=== PATIENT | female | born 1960 | race Caucasian/White ===

== ENCOUNTER 2016-08-20 19:13 | Inpatient (IN) | payer BC, OTHER ==
[~2016-08-20] VITALS: Ht 165.1 cm; Wt 56.7 kg
[2016-08-21] MEDS ORDERED: MAGNESIUM HYDROXIDE 30 ML LIQUID UDC PO PRN (17:15)
[2016-08-21] MEDS ORDERED: LORAZEPAM 2 MG/1 ML VIAL IM PRN (17:15)
[2016-08-21] MEDS ORDERED: LORAZEPAM 1 MG TABLET PO PRN (17:15)
[2016-08-21] MEDS ORDERED: diphenhydrAMINE 50 MG CAPSULE PO PRN (17:15)
[2016-08-21] MEDS ORDERED: ACETAMINOPHEN 325 MG TABLET PO PRN (17:15)
[2016-08-21] MEDS ORDERED: LOPERAMIDE HCL 2 MG CAPSULE PO PRN (17:15)
[2016-08-21] MEDS ORDERED: ONDANSETRON 4 MG/2 ML VIAL IM PRN (17:15)
[2016-08-21] MEDS ORDERED: MAG HYDROX/AL HYDROX/SIMETH 30 ML LIQUID UDC PO PRN (17:15)
[2016-08-21] MEDS ORDERED: MIRALAX 17 GM POWD.PACK PO PRN (17:15)
[2016-08-21 17:58] LABS: THYROID STIMULATING HORMONE 3.286 mIU/mL (0.358-3.740)
[2016-08-21] MEDS ORDERED: GABA600T2 PO (18:07)
[2016-08-21] MEDS ORDERED: GABA-534 PO (18:08)
[2016-08-21 18:09] LABS: ALBUMIN 3.6 g/dL (3.4-5.0); BILIRUBIN,TOTAL 0.2 mg/dL (0.2-1.0); CALCIUM 8.7 mg/dL (8.5-10.1); CREATININE 0.9 mg/dL (0.6-1.3); MAGNESIUM 1.8 mg/dL (1.8-2.4); POTASSIUM 4.4 mmol/L (3.5-5.1); TOTAL PROTEIN, SERUM 8.1 g/dL (6.4-8.2)
[2016-08-21] MEDS ORDERED: BUPR450T PO (18:10)
[2016-08-21] MEDS ORDERED: ZOLP10TA6 PO (18:12)
[2016-08-21] MEDS ORDERED: FLUO40CA49 PO (18:12)
[2016-08-21] MEDS ORDERED: FLUO-120 PO (18:13)
[2016-08-21] MEDS ORDERED: LOSA1TAB36 PO (18:14)
[2016-08-21 18:18] LABS: HIV-1 p24 ANTIGEN NON REACTIVE (NONREACTIVE); HIV-1/2 ANTIBODY NON REACTIVE (NONREACTIVE)
[2016-08-21 18:23] LABS: BASOPHILS # (AUTO) 0.1 K/uL (0.0-8.0); EOSINOPHILS % (AUTO) 0.4 % (0.0-7.0); HEMATOCRIT 42.3 % (37-47); HEMOGLOBIN 14.2 G/DL (12.0-16.0); LYMPHOCYTES # (AUTO) 1.9 K/uL (20.0-40.0); LYMPHOCYTES % (AUTO) 20.9 % (20.5-51.5); MEAN CORPUSCULAR HEMOGLOBIN 32.7 UUG (27.0-31.0); MEAN CORPUSCULAR HGB CONC 34 g/dL (32.0-37.0); MEAN CORPUSCULAR VOLUME 97.4 FL (81.0-99.0); MONOCYTES # (AUTO) 0.7 K/uL (2.0-10.0); MONOCYTES % (AUTO) 7.4 % (0.0-11.0); NEUTROPHILS # (AUTO) 6.3 K/uL (1.8-8.9); NEUTROPHILS % (AUTO) 70.3 % (38.5-71.5); PLATELET COUNT (AUTO) 370 K/UL (150-450); RED BLOOD CELL COUNT(AUTO) 4.34 MIL/UL (4.2-5.4); RED CELL DISTRIBUTION WIDTH 13.3 % (11.5-14.5)
[2016-08-21 18:47] VITALS: BP 129/86
[2016-08-21] MEDS ORDERED: THIAMINE HCL 200 MG/2 ML VIAL IM ONE (19:00)
[2016-08-21 20:00] VITALS: BP 145/95
[2016-08-21 20:54] LABS: *URINE HCG, QUAL NEGATIVE (NEGATIVE)
[2016-08-21 21:10] LABS: *AMPHETAMINE, URINE NEGATIVE (NEGATIVE); *BARBITURATE, URINE NEGATIVE (NEGATIVE); *CANNABINOID, URINE NEGATIVE (NEGATIVE); *COCCAINE, URINE NEGATIVE (NEGATIVE); *OPIATE, URINE NEGATIVE (NEGATIVE); *PHENCYCLIDINE SCREEN,URINE NEGATIVE (NEGATIVE)
[2016-08-21] MEDS: LORAZEPAM 1 MG TABLET PO PRN (21:23)
[2016-08-21] MEDS: ONDANSETRON ODT 4 MG TAB.RAPDIS SL PRN (21:23)
[2016-08-21] MEDS: IBUPROFEN 400 MG TABLET PO PRN (21:23)
[2016-08-22] VITALS (7 sets, daily range): BP systolic 102–173; BP diastolic 63–116
[2016-08-22] MEDS: LORAZEPAM 1 MG TABLET PO PRN (01:49)
[2016-08-22] MEDS: IBUPROFEN 400 MG TABLET PO PRN (01:49)
[2016-08-22] MEDS: CLONIDINE HCL 0.1 MG TABLET PO PRN ×2 (07:42→17:06)
[2016-08-22] MEDS: ONDANSETRON ODT 4 MG TAB.RAPDIS SL PRN (07:42)
[2016-08-22] MEDS: DICYCLOMINE HCL 20 MG TABLET PO PRN (07:42)
[2016-08-22] MEDS: FOLIC ACID 1 MG TABLET PO SCH (08:10)
[2016-08-22] MEDS: MULTIVITAMINS,THERAPEUTIC TABLET PO SCH (08:10)
[2016-08-22] MEDS: LORAZEPAM 1 MG TABLET PO SCH ×4 (08:10→21:24)
[2016-08-22] MEDS: THIAMINE HCL 100 MG TABLET PO SCH (08:10)
[2016-08-22] MEDS ORDERED: TUBERCULIN,PURIF.PROT.DERIV. 5 TU/0.1 ML TEST ID ONE (09:00)
[2016-08-22] MEDS: HYDROCHLOROTHIAZIDE 12.5 MG CAPSULE PO SCH (11:52)
[2016-08-22] MEDS: LOSARTAN POTASSIUM 50 MG TABLET PO SCH (11:52)
[2016-08-22 12:06] LABS: HCV AB 0.1 s/co ratio (0.0-0.9); HEPATITIS B CORE AB, IgM Negative (Negative); HEPATITIS B SURFACE AG Negative (Negative)
[2016-08-22] MEDS ORDERED: FLUOXETINE HCL 20 MG CAPSULE PO SCH ×2 (12:30)
[2016-08-22] MEDS: FLUOXETINE HCL 20 MG CAPSULE PO SCH (12:59)
[2016-08-22] MEDS ORDERED: GABAPENTIN 300 MG CAPSULE PO SCH ×2 (13:00)
[2016-08-22] MEDS: buPROPion XL 150 MG TAB.SR.24H PO SCH (13:00)
[2016-08-22] MEDS ORDERED: Medication Not On Formulary EA (Gabapentin 1 TAB) PO SCH (13:00)
[2016-08-22] MEDS ORDERED: GABAPENTIN 300 MG CAPSULE PO ONE (14:15)
[2016-08-22] MEDS: GABAPENTIN 300 MG CAPSULE PO SCH ×2 (17:05→21:26)
[2016-08-22] MEDS: TRAZODONE 100 MG TABLET PO SCH (21:25)
[2016-08-23] VITALS: BP 113/75
[2016-08-23 04:00] VITALS: BP 116/67
[2016-08-23] MEDS: GABAPENTIN 300 MG CAPSULE PO SCH ×4 (08:12→21:00)
[2016-08-23] MEDS: HYDROCHLOROTHIAZIDE 12.5 MG CAPSULE PO SCH (08:12)
[2016-08-23] MEDS: MULTIVITAMINS,THERAPEUTIC TABLET PO SCH (08:12)
[2016-08-23] MEDS: THIAMINE HCL 100 MG TABLET PO SCH (08:12)
[2016-08-23] MEDS: FLUOXETINE HCL 20 MG CAPSULE PO SCH (08:12)
[2016-08-23] MEDS: buPROPion XL 150 MG TAB.SR.24H PO SCH (08:13)
[2016-08-23] MEDS: LORAZEPAM 1 MG TABLET PO SCH ×3 (08:13→20:59)
[2016-08-23] MEDS: FOLIC ACID 1 MG TABLET PO SCH (08:13)
[2016-08-23] MEDS: LOSARTAN POTASSIUM 50 MG TABLET PO SCH (08:13)
[2016-08-23 08:16] VITALS: BP 141/94
[2016-08-23] MEDS ORDERED: Medication Not On Formulary EA (Losartan/Hydrochlorothiazide (Losartan-Hctz 50-12.5 Mg T PO SCH (09:00)
[2016-08-23 12:45] VITALS: BP 118/81
[2016-08-23 17:07] VITALS: BP 110/62
[2016-08-23 20:00] VITALS: BP 130/88
[2016-08-23] MEDS: TRAZODONE 100 MG TABLET PO SCH (21:00)
[2016-08-24 08:00] VITALS: BP 106/62
[2016-08-24] MEDS: FLUOXETINE HCL 20 MG CAPSULE PO SCH (09:17)
[2016-08-24] MEDS: buPROPion XL 150 MG TAB.SR.24H PO SCH (09:17)
[2016-08-24] MEDS: MULTIVITAMINS,THERAPEUTIC TABLET PO SCH (09:17)
[2016-08-24] MEDS: GABAPENTIN 300 MG CAPSULE PO SCH ×4 (09:17→21:24)
[2016-08-24] MEDS: FOLIC ACID 1 MG TABLET PO SCH (09:18)
[2016-08-24] MEDS: LOSARTAN POTASSIUM 50 MG TABLET PO SCH (09:18)
[2016-08-24] MEDS: LORAZEPAM 1 MG TABLET PO SCH ×4 (09:18→21:23)
[2016-08-24] MEDS: THIAMINE HCL 100 MG TABLET PO SCH (09:18)
[2016-08-24] MEDS: HYDROCHLOROTHIAZIDE 12.5 MG CAPSULE PO SCH (09:25)
[2016-08-24 12:00] VITALS: BP 129/93
[2016-08-24 16:00] VITALS: BP 147/94
[2016-08-24 20:00] VITALS: BP 155/102
[2016-08-24] MEDS: TRAZODONE 100 MG TABLET PO SCH (21:23)
[2016-08-24] MEDS: CLONIDINE HCL 0.1 MG TABLET PO PRN (21:28)
[2016-08-25 04:00] VITALS: BP 131/84
[2016-08-25] MEDS: LOPERAMIDE HCL 2 MG CAPSULE PO PRN ×2 (05:08→17:48)
[2016-08-25] MEDS: DICYCLOMINE HCL 20 MG TABLET PO PRN (05:08)
[2016-08-25 07:27] LABS: BASOPHILS # (AUTO) 0.1 K/uL (0.0-8.0); BASOPHILS % (AUTO) 0.5 % (0.0-2.0); EOSINOPHILS # (AUTO) 0.3 K/uL (0.0-0.7); EOSINOPHILS % (AUTO) 2.7 % (0.0-7.0); HEMATOCRIT 35.2 % (37-47); HEMOGLOBIN 11.6 G/DL (12.0-16.0); LYMPHOCYTES # (AUTO) 2.8 K/UL (0.8-4.8); LYMPHOCYTES % (AUTO) 27.1 % (20.5-51.5); MEAN CORPUSCULAR HEMOGLOBIN 32.8 UUG (27.0-31.0); MEAN CORPUSCULAR HGB CONC 33 g/dL (32.0-37.0); MEAN CORPUSCULAR VOLUME 99.2 FL (81.0-99.0); MONOCYTES # (AUTO) 1.4 K/UL (0.1-1.30); MONOCYTES % (AUTO) 13.1 % (0.0-11.0); NEUTROPHILS # (AUTO) 5.9 K/UL (1.8-8.9); NEUTROPHILS % (AUTO) 56.6 % (38.5-71.5); PLATELET COUNT (AUTO) 254 K/UL (150-450); RED BLOOD CELL COUNT(AUTO) 3.55 MIL/UL (4.2-5.4); RED CELL DISTRIBUTION WIDTH 13.4 % (11.5-14.5); WHITE BLOOD COUNT (AUTO) 10.5 K/UL (4.0-11.2)
[2016-08-25 07:51] LABS: ALBUMIN 2.8 g/dL (3.4-5.0); BILIRUBIN,DIRECT 0.1 mg/dL (0.0-0.2); BILIRUBIN,TOTAL 0.3 mg/dL (0.2-1.0); CALCIUM 8.3 mg/dL (8.5-10.1); MAGNESIUM 2.2 mg/dL (1.8-2.4); PHOSPHOROUS 3.3 mg/dL (2.5-4.9); POTASSIUM 4.4 mmol/L (3.5-5.1); TOTAL PROTEIN, SERUM 6.5 g/dL (6.4-8.2)
[2016-08-25 08:00] VITALS: BP 128/83
[2016-08-25] MEDS: buPROPion XL 150 MG TAB.SR.24H PO SCH (09:32)
[2016-08-25] MEDS: GABAPENTIN 300 MG CAPSULE PO SCH ×4 (09:33→20:05)
[2016-08-25] MEDS: FLUOXETINE HCL 20 MG CAPSULE PO SCH (09:33)
[2016-08-25] MEDS: LORAZEPAM 1 MG TABLET PO SCH ×3 (09:33→20:04)
[2016-08-25] MEDS: FOLIC ACID 1 MG TABLET PO SCH (09:33)
[2016-08-25] MEDS: HYDROCHLOROTHIAZIDE 12.5 MG CAPSULE PO SCH (09:33)
[2016-08-25] MEDS: THIAMINE HCL 100 MG TABLET PO SCH (09:33)
[2016-08-25] MEDS: LOSARTAN POTASSIUM 50 MG TABLET PO SCH (09:33)
[2016-08-25] MEDS: MULTIVITAMINS,THERAPEUTIC TABLET PO SCH (09:33)
[2016-08-25 12:00] VITALS: BP 144/83
[2016-08-25 16:00] VITALS: BP 175/96
[2016-08-25] MEDS: HYDROXYZINE PAMOATE 25 MG CAPSULE PO PRN (17:47)
[2016-08-25] MEDS: CLONIDINE HCL 0.1 MG TABLET PO PRN (17:47)
[2016-08-25 20:00] VITALS: BP 145/97
[2016-08-25] MEDS: TRAZODONE 100 MG TABLET PO SCH (20:04)
[2016-08-26] VITALS: BP 132/87
[2016-08-26 08:00] VITALS: BP 152/98
[2016-08-26] MEDS: FOLIC ACID 1 MG TABLET PO SCH (08:45)
[2016-08-26] MEDS: MULTIVITAMINS,THERAPEUTIC TABLET PO SCH (08:45)
[2016-08-26] MEDS: buPROPion XL 150 MG TAB.SR.24H PO SCH (08:46)
[2016-08-26] MEDS: FLUOXETINE HCL 20 MG CAPSULE PO SCH (08:46)
[2016-08-26] MEDS: LORAZEPAM 1 MG TABLET PO SCH ×2 (08:46→20:00)
[2016-08-26] MEDS: GABAPENTIN 300 MG CAPSULE PO SCH ×4 (08:46→20:00)
[2016-08-26] MEDS: HYDROCHLOROTHIAZIDE 12.5 MG CAPSULE PO SCH (08:46)
[2016-08-26] MEDS: LOSARTAN POTASSIUM 50 MG TABLET PO SCH (08:46)
[2016-08-26] MEDS: THIAMINE HCL 100 MG TABLET PO SCH (08:46)
[2016-08-26 12:00] VITALS: BP 171/103
[2016-08-26] MEDS: CLONIDINE HCL 0.1 MG TABLET PO PRN ×2 (12:25→19:42)
[2016-08-26] MEDS ORDERED: HYDROCHLOROTHIAZIDE 12.5 MG CAPSULE PO ONE (13:00)
[2016-08-26] MEDS ORDERED: hydrALAZINE HCL 25 MG TABLET PO PRN (13:00)
[2016-08-26 16:00] VITALS: BP 141/90
[2016-08-26 20:00] VITALS: BP 154/111
[2016-08-26] MEDS: TRAZODONE 100 MG TABLET PO SCH (20:00)
[2016-08-26 21:00] VITALS: BP 131/92
[2016-08-27] VITALS (9 sets, daily range): BP systolic 107–166; BP diastolic 62–113
[2016-08-27] MEDS: HYDROXYZINE PAMOATE 25 MG CAPSULE PO PRN ×2 (09:04→22:29)
[2016-08-27] MEDS: THIAMINE HCL 100 MG TABLET PO SCH (09:04)
[2016-08-27] MEDS: buPROPion XL 150 MG TAB.SR.24H PO SCH (09:04)
[2016-08-27] MEDS: HYDROCHLOROTHIAZIDE 12.5 MG CAPSULE PO SCH (09:05)
[2016-08-27] MEDS: FOLIC ACID 1 MG TABLET PO SCH (09:08)
[2016-08-27] MEDS: FLUOXETINE HCL 20 MG CAPSULE PO SCH (09:08)
[2016-08-27] MEDS: GABAPENTIN 300 MG CAPSULE PO SCH ×4 (09:08→20:41)
[2016-08-27] MEDS: MULTIVITAMINS,THERAPEUTIC TABLET PO SCH (09:08)
[2016-08-27] MEDS: LOSARTAN POTASSIUM 50 MG TABLET PO SCH (09:08)
[2016-08-27] MEDS ORDERED: Trazodone Hcl PO (12:52)
[2016-08-27] MEDS ORDERED: HYDR-3895 PO (12:52)
[2016-08-27] MEDS: CLONIDINE HCL 0.1 MG TABLET PO PRN (17:48)
[2016-08-27] MEDS: TRAZODONE 100 MG TABLET PO SCH (20:40)
[2016-08-27 21:36] LABS: *AMPHETAMINE, URINE NEGATIVE (NEGATIVE); *BARBITURATE, URINE NEGATIVE (NEGATIVE); *CANNABINOID, URINE NEGATIVE (NEGATIVE); *COCCAINE, URINE NEGATIVE (NEGATIVE); *OPIATE, URINE NEGATIVE (NEGATIVE); *PHENCYCLIDINE SCREEN,URINE NEGATIVE (NEGATIVE)
[2016-08-28] VITALS: BP 138/80
[2016-08-28 04:00] VITALS: BP 120/75
[2016-08-28 08:00] VITALS: BP 140/83
[2016-08-28] MEDS: GABAPENTIN 300 MG CAPSULE PO SCH (08:35)
[2016-08-28] MEDS: FLUOXETINE HCL 20 MG CAPSULE PO SCH (08:35)
[2016-08-28] MEDS: buPROPion XL 150 MG TAB.SR.24H PO SCH (08:35)
[2016-08-28 08:36] VITALS: BP 140/83
[2016-08-28] MEDS: LOSARTAN POTASSIUM 50 MG TABLET PO SCH (08:36)
[2016-08-28] MEDS: FOLIC ACID 1 MG TABLET PO SCH (08:37)
[2016-08-28] MEDS: MULTIVITAMINS,THERAPEUTIC TABLET PO SCH (08:37)
[2016-08-28] MEDS: THIAMINE HCL 100 MG TABLET PO SCH (08:37)
[2016-08-28] MEDS: HYDROCHLOROTHIAZIDE 12.5 MG CAPSULE PO SCH (08:37)
== END 2016-08-28 09:58 | disposition home or self-care (01) | DRG 895 ==
LOC: SRC 08-21 16:40
PROVIDERS: ADMIT Internal Medicine; ATTEND Internal Medicine
PROC: HZ2ZZZZ Detoxification Services for Substance Abuse Treatment (ICD-10-PCS; principal; 2016-08-21)
PROC: HZ41ZZZ Group Counseling for Substance Abuse Treatment, Behavioral (ICD-10-PCS; 2016-08-23)
PROC: HZ31ZZZ Individual Counseling for Substance Abuse Treatment, Behavioral (ICD-10-PCS; 2016-08-23)
DX: F10.230 Alcohol dependence with withdrawal, uncomplicated (principal); F33.2 Major depressive disorder, recurrent severe without psychotic features; K70.10 Alcoholic hepatitis without ascites; Y90.9 Presence of alcohol in blood, level not specified; Z90.81 Acquired absence of spleen; Z90.49 Acquired absence of other specified parts of digestive tract; Z96.653 Presence of artificial knee joint, bilateral; Z82.49 Family history of ischemic heart disease and other diseases of the circulatory system; Z80.0 Family history of malignant neoplasm of digestive organs; I10 Essential (primary) hypertension; F13.10 Sedative, hypnotic or anxiolytic abuse, uncomplicated; D64.9 Anemia, unspecified; Z79.899 Other long term (current) drug therapy
CPT/HCPCS: 36415; 70030-TC; 71010; 80307; 83690; 83735; 84100; 84443; 84703; 85025; 86592; 86705; 86803; 87340; 87806; G6040-TC; J2405; J3411; Q0162; Q0163